=== PATIENT | male | born 1995 | race Two or more races ===

== ENCOUNTER 2020-03-26 12:11 | Inpatient (IN) | payer OTHER ==
[~2020-03-26] VITALS: Ht 167.6 cm; Wt 70.5 kg
[2020-03-26] MEDS ORDERED: SULF1TAB42 PO (12:58)
[2020-03-26] MEDS ORDERED: 0.9% SODIUM CHLORIDE 10 ML SYRINGE IVP PRN (13:30)
[2020-03-26] MEDS ORDERED: VANCOMYCIN HCL 1 GM/D5% WATER 200 ML IV ONE (13:30)
[2020-03-26] MEDS ORDERED: PIPERACILLIN/TAZO 3.375 GM/D5W 50 ML IV ONE (13:30)
[2020-03-26 13:55] LABS: BASOPHILS % (AUTO) 0.5 % (0.0-2.0); EOSINOPHILS % (AUTO) 1.3 % (1.0-6.0); HEMATOCRIT 48.2 % (41-53); HEMOGLOBIN 16.3 g/dL (13.5-17.5); LYMPHOCYTES # (AUTO) 1.6 K/uL (1.0-4.8); LYMPHOCYTES % (AUTO) 24.8 % (22.0-44.0); MEAN CORPUSCULAR HGB CONC 33.8 G/dL (31.0-37.0); MEAN CORPUSCULAR VOLUME 95 fL (80-100); MONOCYTES # (AUTO) 0.4 K/uL (0.1-1.0); MONOCYTES % (AUTO) 5.6 % (2.0-9.0); NEUTROPHILS # (AUTO) 4.4 K/uL (1.8-7.7); NEUTROPHILS % (AUTO) 67.8 % (40.0-70.0); PLATELET COUNT (AUTO) 256 K/uL (150-450); RED CELL DISTRIBUTION WIDTH 14.6 % (11.5-14.5)
[2020-03-26 14:19] LABS: ANION GAP 2 mmol/L (8-16); CALCIUM, TOTAL 9.2 mg/dL (8.8-10.5); CARBON DIOXIDE 31 mmol/L (22-29); CHLORIDE 104 mmol/L (98-107); CREATININE 1.03 mg/dL (0.60-1.30); GLOMERULAR FILTR. RATE CALC > 60 mL/min (>60); GLUCOSE,RANDOM 95 mg/dL (70-110); POTASSIUM 5.8 mmol/L (3.5-5.1); SODIUM SERUM 137 mmol/L (136-145); UREA NITROGEN, BLOOD 15 mg/dL (7-18)
[2020-03-26 14:26] LABS: ALANINE AMINOTRANSFERASE 29 U/L (12-78); ALBUMIN 3.9 g/dL (3.4-5.0); ALKALINE PHOSPHATASE 87 U/L (46-116); ASPARTATE AMINOTRANSFERASE 22 U/L (15-37); BILIRUBIN,TOTAL 0.2 mg/dL (0.1-1.0); LACTIC ACID 1.3 mmol/L (0.4-2.0); TOTAL PROTEIN, SERUM 7.2 g/dL (6.4-8.2)
[2020-03-26 15:26] LABS: APPEARANCE,URINE CLEAR (CLEAR); BILIRUBIN,URINE NEGATIVE (NEGATIVE); GLUCOSE, URINE (UA) NEGATIVE (NEGATIVE); KETONES,URINE NEGATIVE (NEGATIVE); LEUKOCYTE ESTERASE ,URINE NEGATIVE (NEGATIVE); NITRATE,URINE NEGATIVE (NEGATIVE); OCCULT BLOOD,URINE NEGATIVE (NEGATIVE); PH,URINE 7.5 (5.0-8.0); PROTEIN,URINE NEGATIVE (NEGATIVE); UROBILINOGEN,URINE 0.2 mg/dL (<=1.0)
[2020-03-26] MEDS ORDERED: DEXAMETHASONE SOD PHOS 4 MG/ML 5 ML VIAL IVP ONE (16:30)
[2020-03-26] MEDS ORDERED: DiphenhydrAMINE HCL 50 MG/ML VIAL IVP ONE (16:30)
[2020-03-26] MEDS ORDERED: FAMOTIDINE 10 MG/ML 2 ML VIAL IVP ONE (16:30)
[2020-03-26] MEDS ORDERED: ONDANSETRON HCL 4 MG/2 ML VIAL IVP PRN ×2 (16:45→18:45)
[2020-03-26] MEDS ORDERED: ACETAMINOPHEN 325 MG TABLET PO PRN (16:45)
[2020-03-26 17:42] VITALS: BP 118/61
[2020-03-26] MEDS ORDERED: SODIUM CHLORIDE 0.9% 100 ML ONE (18:30)
[2020-03-26] MEDS ORDERED: IOVERSOL 350 MG/ML 100 ML VIAL ONE (18:30)
[2020-03-26] MEDS ORDERED: SODIUM CHLORIDE 0.9% 500 ML IV ONE ×2 (20:41→20:49)
[2020-03-26 20:49] VITALS: BP 107/60
[2020-03-26] MEDS: AMPICILLIN SODIUM/SULBACTAM NA 1.5 GM in SODIUM CHLORIDE 0.9% 50 ML IV SCH (20:51)
[2020-03-26] MEDS: HEPARIN SODIUM,PORCINE 5,000 UNITS/ML VIAL SQ SCH (23:13)
[2020-03-26 23:32] VITALS: BP 112/64
[2020-03-26] MEDS ORDERED: DiphenhydrAMINE HCL 25 MG CAPSULE PO ONE (23:45)
[2020-03-27] MEDS: AMPICILLIN SODIUM/SULBACTAM NA 1.5 GM in SODIUM CHLORIDE 0.9% 50 ML IV SCH ×4 (01:39→20:00)
[2020-03-27 04:46] VITALS: BP 100/52
[2020-03-27 06:43] LABS: BASOPHILS % (AUTO) 0.1 % (0.0-2.0); EOSINOPHILS % (AUTO) 0 % (1.0-6.0); HEMATOCRIT 47.5 % (41-53); HEMOGLOBIN 15.9 g/dL (13.5-17.5); LYMPHOCYTES % (AUTO) 6.4 % (22.0-44.0); MEAN CORPUSCULAR HEMOGLOBIN 31.6 pg (26.0-34.0); MEAN CORPUSCULAR HGB CONC 33.5 G/dL (31.0-37.0); MEAN CORPUSCULAR VOLUME 94 fL (80-100); MONOCYTES # (AUTO) 0.2 K/uL (0.1-1.0); MONOCYTES % (AUTO) 1.6 % (2.0-9.0); NEUTROPHILS # (AUTO) 13.8 K/uL (1.8-7.7); PLATELET COUNT (AUTO) 282 K/uL (150-450); RED BLOOD CELL COUNT(AUTO) 5.03 MIL/uL (4.50-5.90); RED CELL DISTRIBUTION WIDTH 14.3 % (11.5-14.5)
[2020-03-27 06:55] LABS: ALANINE AMINOTRANSFERASE 31 U/L (12-78); ALBUMIN 3.4 g/dL (3.4-5.0); ALKALINE PHOSPHATASE 74 U/L (46-116); ANION GAP 2 mmol/L (8-16); ASPARTATE AMINOTRANSFERASE 21 U/L (15-37); BILIRUBIN,TOTAL 0.3 mg/dL (0.1-1.0); CALCIUM, TOTAL 9.1 mg/dL (8.8-10.5); CARBON DIOXIDE 32 mmol/L (22-29); CHLORIDE 101 mmol/L (98-107); CREATININE 1.09 mg/dL (0.60-1.30); GLOMERULAR FILTR. RATE CALC > 60 mL/min (>60); GLUCOSE,RANDOM 117 mg/dL (70-110); POTASSIUM 4.2 mmol/L (3.5-5.1); SODIUM SERUM 135 mmol/L (136-145); TOTAL PROTEIN, SERUM 6.5 g/dL (6.4-8.2); UREA NITROGEN, BLOOD 15 mg/dL (7-18)
[2020-03-27 06:59] LABS: NEUTROPHILS % (AUTO) 91.9 % (40.0-70.0)
[2020-03-27 08:00] VITALS: BP 113/58
[2020-03-27] MEDS: DOCUSATE SODIUM 100 MG CAPSULE PO SCH ×2 (08:20→20:01)
[2020-03-27] MEDS: HEPARIN SODIUM,PORCINE 5,000 UNITS/ML VIAL SQ SCH ×2 (08:20→16:20)
[2020-03-27] MEDS: ACETAMINOPHEN 325 MG TABLET PO PRN ×2 (08:30→20:09)
[2020-03-27] MEDS: BACITRACIN 28 GM OINTMENT TP SCH ×2 (12:44→20:00)
[2020-03-27 20:25] VITALS: BP 116/59
[2020-03-28] MEDS: HEPARIN SODIUM,PORCINE 5,000 UNITS/ML VIAL SQ SCH (00:02)
[2020-03-28] MEDS: AMPICILLIN SODIUM/SULBACTAM NA 1.5 GM in SODIUM CHLORIDE 0.9% 50 ML IV SCH (02:03)
[2020-03-28] MEDS: ACETAMINOPHEN 325 MG TABLET PO PRN ×2 (02:04→09:16)
[2020-03-28 04:00] VITALS: BP 120/57
[2020-03-28 07:52] LABS: BASOPHILS % (AUTO) 0.3 % (0.0-2.0); EOSINOPHILS % (AUTO) 0.9 % (1.0-6.0); HEMATOCRIT 46.2 % (41-53); HEMOGLOBIN 15.8 g/dL (13.5-17.5); LYMPHOCYTES # (AUTO) 2.7 K/uL (1.0-4.8); LYMPHOCYTES % (AUTO) 27.7 % (22.0-44.0); MEAN CORPUSCULAR HEMOGLOBIN 32.4 pg (26.0-34.0); MEAN CORPUSCULAR HGB CONC 34.2 G/dL (31.0-37.0); MEAN CORPUSCULAR VOLUME 95 fL (80-100); MONOCYTES # (AUTO) 0.5 K/uL (0.1-1.0); NEUTROPHILS # (AUTO) 6.5 K/uL (1.8-7.7); NEUTROPHILS % (AUTO) 66.1 % (40.0-70.0); PLATELET COUNT (AUTO) 247 K/uL (150-450); RED BLOOD CELL COUNT(AUTO) 4.88 MIL/uL (4.50-5.90); RED CELL DISTRIBUTION WIDTH 14.9 % (11.5-14.5)
[2020-03-28 08:00] VITALS: BP 117/57
[2020-03-28 08:01] LABS: ANION GAP 3 mmol/L (8-16); CALCIUM, TOTAL 8.8 mg/dL (8.8-10.5); CARBON DIOXIDE 33 mmol/L (22-29); CHLORIDE 104 mmol/L (98-107); CREATININE 0.86 mg/dL (0.60-1.30); GLOMERULAR FILTR. RATE CALC > 60 mL/min (>60); GLUCOSE,RANDOM 88 mg/dL (70-110); POTASSIUM 3.9 mmol/L (3.5-5.1); SODIUM SERUM 140 mmol/L (136-145); UREA NITROGEN, BLOOD 10 mg/dL (7-18)
[2020-03-28] MEDS: DOCUSATE SODIUM 100 MG CAPSULE PO SCH (08:32)
[2020-03-28] MEDS: BACITRACIN 28 GM OINTMENT TP SCH (08:32)
[2020-03-28] MEDS: CLINDAMYCIN HCL 300 MG CAPSULE PO SCH ×2 (09:13→15:31)
[2020-03-28] MEDS ORDERED: CLIN300C3 PO (10:07)
[2020-03-28] MEDS ORDERED: ACET-3207 PO (10:08)
[2020-03-28] MEDS ORDERED: BACI3.5O22 TP (10:20)
== END 2020-03-28 16:00 | DRG 728 ==
LOC: EMS 12:15 → UNDOADMIN 18:18 → 6S 18:18
PROVIDERS: ADMIT Internal Medicine; ATTEND Internal Medicine
DX: N48.22 Cellulitis of corpus cavernosum and penis (principal); F17.210 Nicotine dependence, cigarettes, uncomplicated; E87.5 Hyperkalemia; T19.4XXA Foreign body in penis, initial encounter; W45.8XXA Other foreign body or object entering through skin, initial encounter; W26.9XXA Contact with unspecified sharp object(s), initial encounter; Y92.149 Unspecified place in prison as the place of occurrence of the external cause; Z88.1 Allergy status to other antibiotic agents
CPT/HCPCS: 72170; 74177; 83605; 84132; 87040; J0295; J1100; J1200; J1644; J2543; J3370; J3490; J7040; J7050

== ENCOUNTER 2020-07-22 19:45 | Inpatient (IN) | payer OTHER ==
[~2020-07-22] VITALS: Ht 170.2 cm; Wt 58.0 kg
[~2020-07-22 19:45] MED LIST: ACET-3207 PO; BACI3.5O22 TP; CLIN300C3 PO
[2020-07-22] MEDS ORDERED: KETOROLAC TROMETHAMINE 30 MG/ML VIAL IM ONE (21:45)
[2020-07-22 22:05] VITALS: BP 125/86
[2020-07-22] MEDS ORDERED: IBUPROFEN 400 MG TABLET PO PRN (22:45)
[2020-07-22] MEDS ORDERED: DOCUSATE SODIUM 100 MG CAPSULE PO PRN (22:45)
[2020-07-22] MEDS ORDERED: CloNIDine HCL 0.1 MG TABLET PO PRN (22:45)
[2020-07-22] MEDS ORDERED: PETROLATUM,WHITE 28 GM JELLY TP PRN (22:45)
[2020-07-22] MEDS ORDERED: MAG HYDROX/AL HYDROX/SIMETH ES 30 ML SUSPENSION UDCUP PO PRN (22:45)
[2020-07-22] MEDS ORDERED: ALBUTEROL SULFATE HFA 90 MCG/PUFF 8 GM INHALER IH PRN (22:45)
[2020-07-22] MEDS ORDERED: ONDANSETRON HCL 4 MG TABLET PO PRN (22:45)
[2020-07-22] MEDS ORDERED: NICOTINE 14 MG/24 HOUR PATCH TD PRN (22:45)
[2020-07-22] MEDS ORDERED: MAGNESIUM HYDROXIDE SUSPENSION 30 ML UDCUP PO PRN (22:45)
[2020-07-22] MEDS ORDERED: GuaiFENesin/D-METHORPHAN [SUGAR-FREE] 200-20MG/10 ML SYRUP UDCUP PO PRN (22:45)
[2020-07-22] MEDS ORDERED: LOPERAMIDE HCL 2 MG CAPSULE PO PRN (22:45)
[2020-07-22 22:59] LABS: BASOPHILS % (AUTO) 0.2 % (0.0-2.0); EOSINOPHILS % (AUTO) 1.5 % (1.0-6.0); HEMATOCRIT 50.2 % (41-53); HEMOGLOBIN 16.7 g/dL (13.5-17.5); LYMPHOCYTES # (AUTO) 1.8 K/uL (1.0-4.8); LYMPHOCYTES % (AUTO) 27.6 % (22.0-44.0); MEAN CORPUSCULAR HGB CONC 33.3 G/dL (31.0-37.0); MEAN CORPUSCULAR VOLUME 96 fL (80-100); MONOCYTES # (AUTO) 0.3 K/uL (0.1-1.0); MONOCYTES % (AUTO) 4.8 % (2.0-9.0); NEUTROPHILS # (AUTO) 4.3 K/uL (1.8-7.7); NEUTROPHILS % (AUTO) 65.9 % (40.0-70.0); PLATELET COUNT (AUTO) 259 K/uL (150-450); RED BLOOD CELL COUNT(AUTO) 5.23 MIL/uL (4.50-5.90); RED CELL DISTRIBUTION WIDTH 13.2 % (11.5-14.5)
[2020-07-22 23:07] LABS: ANION GAP 2 mmol/L (8-16); CALCIUM, TOTAL 8.6 mg/dL (8.8-10.5); CARBON DIOXIDE 30 mmol/L (22-29); CHLORIDE 102 mmol/L (98-107); CREATININE 1.15 mg/dL (0.60-1.30); GLOMERULAR FILTR. RATE CALC > 60 mL/min (>60); GLUCOSE,RANDOM 137 mg/dL (70-110); POTASSIUM 4.6 mmol/L (3.5-5.1); SODIUM SERUM 134 mmol/L (136-145); UREA NITROGEN, BLOOD 13 mg/dL (7-18)
[2020-07-22 23:14] LABS: ALANINE AMINOTRANSFERASE 24 U/L (12-78); ALBUMIN 3.5 g/dL (3.4-5.0); ALKALINE PHOSPHATASE 101 U/L (46-116); ASPARTATE AMINOTRANSFERASE 14 U/L (15-37); BILIRUBIN,TOTAL 0.3 mg/dL (0.1-1.0); TOTAL PROTEIN, SERUM 6.9 g/dL (6.4-8.2)
[2020-07-22 23:19] LABS: ACETAMINOPHEN < 2 mcg/mL (10-30)
[2020-07-22 23:36] LABS: SALICYLATE 1.4 mg/dL (2.8-20.0)
[2020-07-22 23:39] LABS: INFLUENZA TYPE A NEGATIVE FOR TYPE A (NEGATIVE); INFLUENZA TYPE B NEGATIVE FOR TYPE B (NEGATIVE)
[2020-07-23] MEDS ORDERED: INFLUENZA VIRUS VACCINE QVS 2020-21 (6MO+)/PF 60 MCG/0.5 ML SYRINGE IM ONE (01:45)
[2020-07-23 04:59] VITALS: BP 116/67
[2020-07-23 06:30] LABS: BASOPHILS % (AUTO) 0.4 % (0.0-2.0); EOSINOPHILS % (AUTO) 1.8 % (1.0-6.0); HEMATOCRIT 49.4 % (41-53); HEMOGLOBIN 16.5 g/dL (13.5-17.5); LYMPHOCYTES # (AUTO) 1.8 K/uL (1.0-4.8); LYMPHOCYTES % (AUTO) 30.1 % (22.0-44.0); MEAN CORPUSCULAR HEMOGLOBIN 31.8 pg (26.0-34.0); MEAN CORPUSCULAR HGB CONC 33.3 G/dL (31.0-37.0); MEAN CORPUSCULAR VOLUME 95 fL (80-100); MONOCYTES # (AUTO) 0.7 K/uL (0.1-1.0); MONOCYTES % (AUTO) 11.1 % (2.0-9.0); NEUTROPHILS # (AUTO) 3.4 K/uL (1.8-7.7); NEUTROPHILS % (AUTO) 56.6 % (40.0-70.0); PLATELET COUNT (AUTO) 271 K/uL (150-450); RED BLOOD CELL COUNT(AUTO) 5.18 MIL/uL (4.50-5.90); RED CELL DISTRIBUTION WIDTH 13.2 % (11.5-14.5)
[2020-07-23 07:55] VITALS: BP 102/64
[2020-07-23] MEDS: SERTRALINE HCL 50 MG TABLET PO SCH (12:41)
[2020-07-23] MEDS: ACETAMINOPHEN 325 MG TABLET PO PRN (18:18)
[2020-07-23 18:45] LABS: COVID AG,FIA SOURCE NASAL SWAB
[2020-07-23 20:38] VITALS: BP 126/68
[2020-07-24 04:58] VITALS: BP 117/74
[2020-07-24 08:10] VITALS: BP 102/77
[2020-07-24] MEDS: SERTRALINE HCL 50 MG TABLET PO SCH (08:21)
[2020-07-24 16:00] VITALS: BP 110/76
[2020-07-24 20:18] VITALS: BP 119/66
[2020-07-24] MEDS: ZOLPIDEM TARTRATE 5 MG TABLET PO PRN (21:43)
[2020-07-25 05:20] VITALS: BP 121/60
[2020-07-25 07:31] VITALS: BP 112/67
[2020-07-25] MEDS: SERTRALINE HCL 50 MG TABLET PO SCH (08:56)
[2020-07-25 19:30] VITALS: BP 132/79
[2020-07-25] MEDS: ACETAMINOPHEN 325 MG TABLET PO PRN (20:30)
[2020-07-25] MEDS: ZOLPIDEM TARTRATE 5 MG TABLET PO PRN (20:30)
[2020-07-26 03:56] VITALS: BP 119/83
[2020-07-26 07:08] VITALS: BP 110/68
[2020-07-26] MEDS: SERTRALINE HCL 50 MG TABLET PO SCH (08:35)
== END 2020-07-26 12:25 | DRG 885 ==
LOC: EMS 19:45 → 6S 21:52
PROVIDERS: ADMIT Internal Medicine; ATTEND Internal Medicine
DX: F33.2 Major depressive disorder, recurrent severe without psychotic features (principal); R45.851 Suicidal ideations; M19.90 Unspecified osteoarthritis, unspecified site; Z20.828 Contact with and (suspected) exposure to other viral communicable diseases; M25.579 Pain in unspecified ankle and joints of unspecified foot; Z87.891 Personal history of nicotine dependence; Z91.5 Personal history of self-harm; Z88.1 Allergy status to other antibiotic agents
CPT/HCPCS: 72100; 87426; 87804; G0480; G0481; J1885